=== PATIENT | female | born 1980 | race Caucasian/White ===

== ENCOUNTER 2022-12-27 18:11 | Emergency (ER) | payer OTHER ==
[2022-12-27 18:27] VITALS: BP 138/85
== END 2022-12-27 21:39 | disposition home or self-care (01) ==
LOC: ED 18:11
DX: R07.89 Other chest pain (principal); Z88.6 Allergy status to analgesic agent; Z88.0 Allergy status to penicillin; Z91.040 Latex allergy status; Z88.8 Allergy status to other drugs, medicaments and biological substances; V43.52XA Car driver injured in collision with other type car in traffic accident, initial encounter; Y93.89 Activity, other specified; Y92.410 Unspecified street and highway as the place of occurrence of the external cause; Y99.8 Other external cause status

== ENCOUNTER → 2023-06-27 | Outpatient (CLI) | payer SELFPAY ==
[2023-06-27 11:23] LABS: BASO # 0.1 10*3/uL (0.0-0.1); BASO % 0.7 % (0.0-1.0); EOS # 0.2 10*3/uL (0.0-0.4); EOS % 3.2 % (1.0-4.0); HEMATOCRIT 33.5 % (37.0-47.0); LYMPH # 2.5 10*3/uL (1.3-4.4); LYMPH % 36.5 % (27.0-41.0); MEAN CELL VOLUME 73.3 fl (81.0-99.0); MEAN CORPUSCULAR HGB 20.8 pg (27.0-31.0); MEAN CORPUSCULAR HGB CONC 28.4 g/dl (33.0-37.0); MEAN PLATELET VOLUME 9.1 fl (9.6-12.3); MONO # 0.3 10*3/uL (0.1-1.0); MONO % 3.8 % (3.0-9.0); NEUT # 3.8 10*3/uL (2.3-7.9); NEUT % 55.5 % (47.0-73.0); PLATELET COUNT AUTOMATED 389 10*3/uL (130-400); RED BLOOD COUNT 4.57 10*6/uL (4.10-5.10); RED CELL DISTRI WIDTH 19.8 % (0-14.5); WHITE BLOOD COUNT 6.8 10*3/uL (4.8-10.8)
[2023-06-27 11:56] LABS: ALKALINE PHOSPHATASE 84 U/L (46-116); BUN 8 mg/dl (9-23); CHLORIDE 106 mmol/L (98-107); CHOLESTEROL 193 mg/dL (<200); FREE T4 0.88 ng/dl (0.89-1.76); LDL CHOLESTEROL 125 mg/dL (9-159); POTASSIUM 3.8 mmol/L (3.4-5.1); SGPT/ALT 16 U/L (5-49); TOTAL PROTEIN 7.6 gm/dL (6.0-8.0); TRIGLYCERIDES 183 mg/dl (<150)
== END | disposition home or self-care (01) ==
LOC: LAB 10:56
PROVIDERS: ATTEND Family Medicine
DX: E78.00 Pure hypercholesterolemia, unspecified (principal); E03.9 Hypothyroidism, unspecified

== ENCOUNTER 2024-05-02 14:01 | Emergency (ER) | payer SELFPAY ==
[2024-05-02] VITALS (10 sets, daily range): BP systolic 105–136; BP diastolic 44–77
[~2024-05-02] VITALS: Ht 167.6 cm; Wt 104.8 kg
[2024-05-02 15:29] LABS: HEMATOCRIT 22.7 % (37.0-47.0); MEAN CELL VOLUME 66.2 fl (81.0-99.0); MEAN CORPUSCULAR HGB 17.5 pg (27.0-31.0); MEAN CORPUSCULAR HGB CONC 26.4 g/dl (33.0-37.0); PLATELET COUNT AUTOMATED 232 10*3/uL (130-400); RED BLOOD COUNT 3.43 10*6/uL (4.10-5.10); RED CELL DISTRI WIDTH 21.1 % (0-14.5); WHITE BLOOD COUNT 6.1 10*3/uL (4.8-10.8)
[2024-05-02 15:47] LABS: MANUAL DIFF REFLEX YES
[2024-05-02 15:49] LABS: BUN 6 mg/dl (9-23); CHLORIDE 102 mmol/L (98-107); POTASSIUM 3.3 mmol/L (3.4-5.1)
[2024-05-02 16:03] LABS: PLATELET SUFFICIENCY NORMAL (NORMAL); TOTAL CELLS COUNTED 100 #CELLS
[2024-05-02 16:04] LABS: OVALOCYTES FEW
[2024-05-02 16:05] LABS: SCHISTOCYTES FEW
[2024-05-02] MEDS ORDERED: SODIUM CHLORIDE 0.9% 500 ML IV ONE ×2 (18:57→22:41)
[2024-05-02] MEDS ORDERED: ACETAMINOPHEN 325 MG TAB PO ONE (19:35)
[2024-05-03] VITALS: BP 108/51
[2024-05-03 01:50] VITALS: BP 112/57
[2024-05-03 02:05] LABS: BASO % 0.5 % (0.0-1.0); EOS # 0.2 10*3/uL (0.0-0.4); EOS % 2.9 % (1.0-4.0); HEMATOCRIT 25.8 % (37.0-47.0); MEAN CORPUSCULAR HGB 19.9 pg (27.0-31.0); MEAN CORPUSCULAR HGB CONC 28.3 g/dl (33.0-37.0); MEAN PLATELET VOLUME 9.3 fl (9.6-12.3); MONO # 0.6 10*3/uL (0.1-1.0); MONO % 7.5 % (3.0-9.0); NEUT # 4.7 10*3/uL (2.3-7.9); NEUT % 60.5 % (47.0-73.0); PLATELET COUNT AUTOMATED 210 10*3/uL (130-400); RED BLOOD COUNT 3.67 10*6/uL (4.10-5.10); RED CELL DISTRI WIDTH 23.8 % (0-14.5); WHITE BLOOD COUNT 7.7 10*3/uL (4.8-10.8)
[2024-05-03 02:10] LABS: MEAN CELL VOLUME 70.3 fl (81.0-99.0)
== END 2024-05-03 03:03 | disposition home or self-care (01) ==
LOC: ED 14:01
PROVIDERS: Internal Medicine; Nurse Practitioner Family
DX: D64.9 Anemia, unspecified (principal); N93.8 Other specified abnormal uterine and vaginal bleeding; E87.6 Hypokalemia; Z88.0 Allergy status to penicillin; Z88.8 Allergy status to other drugs, medicaments and biological substances; Z20.822 Contact with and (suspected) exposure to COVID-19

== ENCOUNTER 2024-06-22 19:43 | Emergency (ER) | payer SELFPAY ==
[~2024-06-22] VITALS: Ht 167.6 cm; Wt 104.3 kg
[2024-06-22 20:36] LABS: BASO # 0.1 10*3/uL (0.0-0.1); BASO % 0.5 % (0.0-1.0); EOS # 0.3 10*3/uL (0.0-0.4); EOS % 2.6 % (1.0-4.0); MEAN CELL VOLUME 70.3 fl (81.0-99.0); MEAN CORPUSCULAR HGB 19.2 pg (27.0-31.0); MEAN CORPUSCULAR HGB CONC 27.3 g/dl (33.0-37.0); MEAN PLATELET VOLUME 9.7 fl (9.6-12.3); MONO # 0.5 10*3/uL (0.1-1.0); MONO % 5.2 % (3.0-9.0); NEUT # 6.3 10*3/uL (2.3-7.9); NEUT % 66.2 % (47.0-73.0); PLATELET COUNT AUTOMATED 346 10*3/uL (130-400); RED CELL DISTRI WIDTH 22.3 % (0-14.5); WHITE BLOOD COUNT 9.5 10*3/uL (4.8-10.8)
[2024-06-22 20:38] LABS: BILIRUBIN Negative (Negative); BLOOD 3+ (Negative); CLARITY Clear (Clear); COLOR Orange (Yellow); GLUCOSE Negative (Negative); KETONE Negative (Negative); LEUKO ESTERASE Trace (Negative); NITRITE Negative (Negative); PH 7.5 (4.5-8.0); UROBILINOGEN 0.2 E.U./dl (0.0-1.0)
[2024-06-22 21:00] LABS: BUN 11 mg/dl (9-23); CHLORIDE 101 mmol/L (98-107); POTASSIUM 3.4 mmol/L (3.4-5.1)
[2024-06-22 21:05] LABS: BACTERIA 1+; RBC TNTC rbc/hpf (0-2)
[2024-06-22 21:49] VITALS: BP 121/61
[2024-06-22] MEDS ORDERED: SODIUM CHLORIDE 0.9% 500 ML IV ONE (22:00)
[2024-06-22 22:03] VITALS: BP 116/67
[2024-06-22 22:16] VITALS: BP 115/60
[2024-06-22 22:31] VITALS: BP 112/63
[2024-06-22 22:57] VITALS: BP 120/69
[2024-06-22 23:08] VITALS: BP 117/74
== END 2024-06-22 23:51 | disposition home or self-care (01) ==
LOC: ED 19:43
PROVIDERS: Physician Assistant Medical
DX: D64.9 Anemia, unspecified (principal); N93.8 Other specified abnormal uterine and vaginal bleeding; R10.2 Pelvic and perineal pain; Z79.899 Other long term (current) drug therapy; Z88.0 Allergy status to penicillin; Z88.6 Allergy status to analgesic agent

== ENCOUNTER 2024-11-08 17:15 | Emergency (ER) | payer SELFPAY ==
[~2024-11-08] VITALS: Ht 167.6 cm; Wt 106.6 kg
[2024-11-08] MEDS ORDERED: CAMILA0.35 MG PO (18:43)
[2024-11-08 19:49] LABS: BUN 9 mg/dl (9-23)
[2024-11-08 20:20] LABS: MEAN CELL VOLUME 63.4 fl (81.0-99.0); MEAN CORPUSCULAR HGB 15.7 pg (27.0-31.0); MEAN PLATELET VOLUME 9.4 fl (9.6-12.3); NUCLEATED RED BLOOD CELL 0.0 % (0.0-0.0); NUCLEATED RED BLOOD CELL 0.0 10*3/uL (0.0-0.0); RED CELL DISTRI WIDTH 22.5 % (0-14.5)
[2024-11-08 20:23] LABS: MANUAL DIFF REFLEX YES
[2024-11-08 20:25] LABS: PLATELET COUNT AUTOMATED 348 10*3/uL (130-400)
[2024-11-08 20:45] LABS: PLATELET SUFFICIENCY NORMAL (NORMAL); STOMATOCYTE FEW
[2024-11-08] MEDS ORDERED: diphenhydrAMINE hydrochloride 50 MG/ML VIAL IV ONE (20:55)
[2024-11-08 23:22] VITALS: BP 112/64
[2024-11-08 23:43] VITALS: BP 112/64
[2024-11-08 23:58] VITALS: BP 119/68
[2024-11-09] VITALS (7 sets, daily range): BP systolic 114–134; BP diastolic 63–74
== END 2024-11-09 02:13 | disposition home or self-care (01) ==
LOC: ED 17:15
PROVIDERS: Nurse Practitioner
DX: D64.9 Anemia, unspecified (principal); Z51.89 Encounter for other specified aftercare; Z88.0 Allergy status to penicillin